=== PATIENT | female | born 1980 | race Caucasian/White ===

== ENCOUNTER 2017-09-13 13:56 | Emergency (ER) | payer BC ==
--- NOTE | 2017-09-13 14:08 | EDM.PDOC ---
ED HPI GENERAL MEDICAL PROBLEM - General Chief Complaint: General Stated Complaint: Heavy vaginal bleeding Time Seen by Provider: 09/13/17 13:58 Source of Information: Reports: Patient, Family, RN, RN Notes Reviewed History Limitations: Reports: No Limitations - History of Present Illness INITIAL COMMENTS - FREE TEXT/NARRATIVE: Patient is brought to the emergency room at [facility] from the with severe heavy vaginal bleeding. According to the patient her symptoms began around noon yesterday the patient had been having some vaginal spotting 3 days prior. The patient states her menstrual cycles are very regular every 28 days. The patient has had no prior [employer] history. She has had 4 live pregnancies without any complications. The patient states since noon yesterday her vaginal bleeding has progressively gotten worse. When she presented to the [facility] this morning she was changing a super tampon/ pad every 15-30 minutes. The patient states her symptoms were an abrupt onset. The patient states that she has never had any uterine bleeding in the past. The patient has a history of a tubal ligation. The patient states she feels very faint and dizzy. The patient thinks that she may have had a syncopal episode this morning, but nothing since. Overall the patient is very healthy. She is a very active woman. The patient states that her pads were heavily soaked with clotty blood. The patient states she also felt nauseated. No vomiting. No diarrhea. The patient denies any UTI symptoms. Unknown if there is any FURN[employer] cancer in the patient's family history. Onset: Sudden Onset Date: 09/12/17 - Related Data Allergies Allergy/AdvReac Type Severity Reaction Status Date / Time bran Allergy Other Verified 09/13/17 15:05 Dairy Products Allergy Other Verified 09/13/17 15:05 Sulfa (Sulfonamide Allergy Hives Verified 09/13/17 15:05 Antibiotics) wheat Allergy Other Verified 09/13/17 15:05 Yeast Allergy Other Verified 09/13/17 15:05 Home Meds: Home Meds Lactase [Lactaid] 2 tab ASDIRECTED PRN 09/13/17 [History] ED ROS GENERAL - Review of Systems Review Of Systems: See Below Constitutional: Reports: Weakness, Decreased Appetite. Denies: Fever, Chills Respiratory: Denies: Shortness of Breath, Cough Cardiovascular: Denies: Chest Pain, Palpitations GI/Abdominal: Reports: Nausea. Denies: Abdominal Pain, Vomiting : Reports: Irregular Menses, Other (heavy vaginal bleeding) Skin: Reports: No Symptoms Neurological: Reports: Dizziness. Denies: Headache ED EXAM, GENERAL - Physical Exam Exam: See Below Exam Limited By: No Limitations General Appearance: Alert, Anxious, Moderate Distress Respiratory/Chest: No Respiratory Distress, Lungs Clear, Normal Breath Sounds Cardiovascular: Normal Peripheral Pulses, Regular Rate, Rhythm Peripheral Pulses: 2+: Radial (L), Radial (R) GI/Abdominal: Normal Bowel Sounds, Soft, Non-Tender (Female) Exam: Deferred (per patient request) Neurological: Alert, Oriented Skin Exam: Warm, Dry, Intact, Normal Color, No Rash Course - Vital Signs Last Recorded V/S: Last Vital Signs Temp 36.3 C 09/13/17 13:56 Pulse 85 09/13/17 13:56 Resp 24 H 09/13/17 13:56 BP 124/78 09/13/17 13:56 Pulse Ox 97 09/13/17 13:56 - Orders/Labs/Meds Orders: Active Orders 24 hr Category Date Time Status EKG 12 Lead [EKG Documentation Completion] [RC] STAT Care 09/13/17 14:35 Ordered Abdomen Pelvis w Cont [CT] Stat Exams 09/13/17 14:27 Taken Sodium Chloride 0.9% [Saline Flush] Med 09/13/17 14:26 Active 10 ml FLUSH ASDIRECTED PRN Peripheral IV Insertion Adult [OM.PC] Routine Oth 09/13/17 14:26 Ordered Medication Orders Sodium Chloride (Saline Flush) 10 ml FLUSH ASDIRECTED PRN PRN Reason: Keep Vein Open Labs: Laboratory Tests 09/13/17 09/13/17 09/13/17 Range/Units 14:24 14:24 14:24 WBC 5.1 (4.0-10.0) x10^3/uL RBC 4.20 (4.00-5.50) x10^6/uL Hgb 13.2 (12.0-16.0) g/dL Hct 38.4 (33.0-47.0) % MCV 91.4 (78.0-93.0) fL MCH 31.4 (26.0-32.0) pg MCHC 34.4 (32.0-36.0) g/dL RDW Coeff of Darvin 12.4 (10.0-15.0) % Plt Count 197 (130-400) x10^3/uL Neut % (Auto) 55.6 (50.0-80.0) % Lymph % (Auto) 33.1 (25.0-50.0) % [place] % (Auto) 8.6 (2.0-11.0) % Eos % (Auto) 2.5 (0.0-4.0) % Baso % (Auto) 0.2 (0.2-1.2) % PT 10.1 (9.8-11.8) SEC INR 0.9 L (2.0-3.5) D-Dimer, Quantitative (<=0.58) mg/LFEU Sodium 142 (136-145) mmol/L Potassium 3.6 (3.5-5.1) mmol/L Chloride 105 (98-107) mmol/L Carbon Dioxide 23 (21-32) mmol/L BUN 10 (7-18) mg/dL Creatinine 0.9 (0.55-1.02) mg/dL Est Cr Clr Drug Dosing TNP Estimated GFR (MDRD) > 60 Glucose 100 (74-106) mg/dL Lactic Acid (0.4-2.0) mmol/L Calcium 8.9 (8.5-10.1) mg/dL Corrected Calcium 8.90 (8.5-10.1) mg/dL Total Bilirubin 0.6 (0.2-1.0) mg/dL AST 17 (15-37) U/L ALT 17 (14-59) U/L Alkaline Phosphatase 54 (46-116) U/L C-Reactive Protein < 0.2 (<=0.9) mg/dL Total Protein 7.2 (6.4-8.2) g/dL Albumin 4.0 (3.4-5.0) g/dL Globulin 3.2 Albumin/Globulin Ratio 1.25 Urine Color (YELLOW) Urine Appearance (CLEAR) Urine pH (5.0-8.0) Ur Specific [place] Urine Protein (NEGATIVE) mg/dL Urine Glucose (UA) (NEGATIVE) mg/dL Urine Ketones (NEGATIVE) mg/dL Urine Occult Blood (NEGATIVE) Urine Nitrite (NEGATIVE) Urine Bilirubin (NEGATIVE) Urine Urobilinogen (0.2) EU/dL Ur Leukocyte Esterase (NEGATIVE) Urine RBC (NOT SEEN) /HPF Urine WBC (NOT SEEN) /HPF Ur Squamous Epith Cells (NEGATIVE) /HPF Amorphous Sediment Urine Bacteria (NEGATIVE) /HPF Urine Mucus (NEGATIVE) /LPF Urine HCG, Qual (NEGATIVE) 09/13/17 09/13/17 09/13/17 Range/Units 14:24 14:24 14:52 WBC (4.0-10.0) x10^3/uL RBC (4.00-5.50) x10^6/uL Hgb (12.0-16.0) g/dL Hct (33.0-47.0) % MCV (78.0-93.0) fL MCH (26.0-32.0) pg MCHC (32.0-36.0) g/dL RDW Coeff of Darvin (10.0-15.0) % Plt Count (130-400) x10^3/uL Neut % (Auto) (50.0-80.0) % Lymph % (Auto) (25.0-50.0) % [place] % (Auto) (2.0-11.0) % Eos % (Auto) (0.0-4.0) % Baso % (Auto) (0.2-1.2) % PT (9.8-11.8) SEC INR (2.0-3.5) D-Dimer, Quantitative 0.26 (<=0.58) mg/LFEU Sodium (136-145) mmol/L Potassium (3.5-5.1) mmol/L Chloride (98-107) mmol/L Carbon Dioxide (21-32) mmol/L BUN (7-18) mg/dL Creatinine (0.55-1.02) mg/dL Est Cr Clr Drug Dosing Estimated GFR (MDRD) Glucose (74-106) mg/dL Lactic Acid 1.9 (0.4-2.0) mmol/L Calcium (8.5-10.1) mg/dL Corrected Calcium (8.5-10.1) mg/dL Total Bilirubin (0.2-1.0) mg/dL AST (15-37) U/L ALT (14-59) U/L Alkaline Phosphatase (46-116) U/L C-Reactive Protein (<=0.9) mg/dL Total Protein (6.4-8.2) g/dL Albumin (3.4-5.0) g/dL Globulin Albumin/Globulin Ratio Urine Color (YELLOW) Urine Appearance (CLEAR) Urine pH (5.0-8.0) Ur Specific [place] Urine Protein (NEGATIVE) mg/dL Urine Glucose (UA) (NEGATIVE) mg/dL Urine Ketones (NEGATIVE) mg/dL Urine Occult Blood (NEGATIVE) Urine Nitrite (NEGATIVE) Urine Bilirubin (NEGATIVE) Urine Urobilinogen (0.2) EU/dL Ur Leukocyte Esterase (NEGATIVE) Urine RBC (NOT SEEN) /HPF Urine WBC (NOT SEEN) /HPF Ur Squamous Epith Cells (NEGATIVE) /HPF Amorphous Sediment Urine Bacteria (NEGATIVE) /HPF Urine Mucus (NEGATIVE) /LPF Urine HCG, Qual Negative (NEGATIVE) 09/13/17 Range/Units 14:52 WBC (4.0-10.0) x10^3/uL RBC (4.00-5.50) x10^6/uL Hgb (12.0-16.0) g/dL Hct (33.0-47.0) % MCV (78.0-93.0) fL MCH (26.0-32.0) pg MCHC (32.0-36.0) g/dL RDW Coeff of Darvin (10.0-15.0) % Plt Count (130-400) x10^3/uL Neut % (Auto) (50.0-80.0) % Lymph % (Auto) (25.0-50.0) % [place] % (Auto) (2.0-11.0) % Eos % (Auto) (0.0-4.0) % Baso % (Auto) (0.2-1.2) % PT (9.8-11.8) SEC INR (2.0-3.5) D-Dimer, Quantitative (<=0.58) mg/LFEU Sodium (136-145) mmol/L Potassium (3.5-5.1) mmol/L Chloride (98-107) mmol/L Carbon Dioxide (21-32) mmol/L BUN (7-18) mg/dL Creatinine (0.55-1.02) mg/dL Est Cr Clr Drug Dosing Estimated GFR (MDRD) Glucose (74-106) mg/dL Lactic Acid (0.4-2.0) mmol/L Calcium (8.5-10.1) mg/dL Corrected Calcium (8.5-10.1) mg/dL Total Bilirubin (0.2-1.0) mg/dL AST (15-37) U/L ALT (14-59) U/L Alkaline Phosphatase (46-116) U/L C-Reactive Protein (<=0.9) mg/dL Total Protein (6.4-8.2) g/dL Albumin (3.4-5.0) g/dL Globulin Albumin/Globulin Ratio Urine Color Yellow (YELLOW) Urine Appearance Clear (CLEAR) Urine pH 7.5 (5.0-8.0) Ur Specific [place] 1.015 Urine Protein Negative (NEGATIVE) mg/dL Urine Glucose (UA) Negative (NEGATIVE) mg/dL Urine Ketones Negative (NEGATIVE) mg/dL Urine Occult Blood Negative (NEGATIVE) Urine Nitrite Negative (NEGATIVE) Urine Bilirubin Negative (NEGATIVE) Urine Urobilinogen 0.2 (0.2) EU/dL Ur Leukocyte Esterase Negative (NEGATIVE) Urine RBC Not seen (NOT SEEN) /HPF Urine WBC 0-5 (NOT SEEN) /HPF Ur Squamous Epith Cells Rare (NEGATIVE) /HPF Amorphous Sediment Few Urine Bacteria Rare (NEGATIVE) /HPF Urine Mucus Rare H (NEGATIVE) /LPF Urine HCG, Qual (NEGATIVE) Meds: Medications Generic Name Dose Route Start Last Admin Trade Name Aditi PRN Reason Stop Dose Admin Sodium Chloride 10 ml 09/13/17 14:26 Saline Flush FLUSH ASDIRECTED PRN Keep Vein Open Discontinued Medications Generic Name Dose Route Start Last Admin Trade Name Fresamira PRN Reason Stop Dose Admin Lactated Ringer's 1,000 mls @ 999 mls/hr 09/13/17 14:26 09/13/17 14:30 Ringers, Lactated IV 09/13/17 15:26 999 mls/hr ONETIME ONE Administration Iopamidol 100 ml 09/13/17 15:05 09/13/17 15:25 Isovue-300 (61%) IVPUSH 09/13/17 15:06 100 ml ONETIME ONE Administration Ondansetron HCl 4 mg 09/13/17 14:36 09/13/17 14:43 Zofran IVPUSH 09/13/17 14:37 4 mg ONETIME ONE Administration - Radiology Interpretation Free Text/Narrative:: CT Abd/Pelvis: No acute process identified; moderate stool in the ascending and transverse colon See scanned document in EMR CT Results Date: 09/13/17 CT Results Time: 15:40 Departure - Departure Time of Disposition: 15:51 Disposition: Home, Self-Care 01 Condition: Good Clinical Impression: Dysfunctional uterine bleeding - Discharge Information Instructions: Dysfunctional Uterine Bleeding Referrals: Gertrudis Plata MD [Ordering Only Provider] - Forms: ED Department Discharge Additional Instructions: 1. Stay well hydrated and rest 2. Drink LOTS of water 3. Take it easy over the next few days, no strenuous activities 4. You are schedule to see Dr. Plata at the [facility] on October 16, at 09:40am for a follow up 5. Recommend establishing care with a Primary Care Provider 6. Call with any questions or concerns - Problem List Review Problem List Initiated/Reviewed/Updated: Yes - My Orders Last 24 Hours: My Active Orders 09/13/17 14:26 Sodium Chloride 0.9% [Saline Flush] 10 ml FLUSH ASDIRECTED PRN Peripheral IV Insertion Adult [OM.PC] Routine 09/13/17 14:27 Abdomen Pelvis w Cont [CT] Stat 09/13/17 14:35 EKG 12 Lead [EKG Documentation Completion] [RC] STAT - Assessment/Plan Last 24 Hours: My Active Orders 09/13/17 14:26 Sodium Chloride 0.9% [Saline Flush] 10 ml FLUSH ASDIRECTED PRN Peripheral IV Insertion Adult [OM.PC] Routine 09/13/17 14:27 Abdomen Pelvis w Cont [CT] Stat 09/13/17 14:35 EKG 12 Lead [EKG Documentation Completion] [RC] STAT Plan: Labs and CT scan were discussed with the patient. No clear etiology was found for the sudden onset of dysfunctional uterine bleeding. I am going to refer the patient to Dr. Gertrudis Plata, [facility] for the diagnosis of dysfunctional uterine bleeding. The patient has also not had a Pap in several years. I also recommended the patient that she establish with a primary care provider. The patient will be scheduled with [facility] for October 16, 2017 at 9:40 AM. The patient is aware of the appointment and states that it works with her schedule.
[2017-09-13] MEDS ORDERED: Sodium Chloride 0.9% 10 ML Syringe FLUSH PRN (14:26)
[2017-09-13] MEDS ORDERED: Lactated Ringers 1,000 ML IV ONE (14:26)
[2017-09-13] MEDS ORDERED: Ondansetron 4 MG/2 ML SDV IVPUSH ONE (14:36)
[2017-09-13 14:54] LABS: CHLORIDE,CL 105 mmol/L (98-107); SODIUM,NA 142 mmol/L (136-145)
[2017-09-13] MEDS ORDERED: Iopamidol 612 MG/ML 100 ML Bottle IVPUSH ONE (15:05)
== END 2017-09-13 16:15 | disposition home or self-care (01) ==
LOC: VM.ED 13:56
DX: N93.8 Other specified abnormal uterine and vaginal bleeding (principal); Z91.011 Allergy to milk products; Z88.2 Allergy status to sulfonamides
CPT/HCPCS: 36415; 74177; 80053; 81001; 81025; 83605; 85025; 85379; 85610; 86140; 96361; 96374; 99284; J2405; J7120; Q9967